=== PATIENT | male | born 1985 | race Caucasian/White ===

== ENCOUNTER 2021-05-01 16:31 | Emergency (ER) | payer SELFPAY ==
[~2021-05-01] VITALS: Ht 175.3 cm; Wt 77.7 kg
--- NOTE | 2021-05-01 20:59 | NUR ---
PT TO ROOM 21 AT THIS TIME. FIRST CONTACT WITH PT. PT REPORTS "I HAVE A HERNIATED BALL SAC" PT AMBULATES. DENIES SOB/CP.
[2021-05-01 21:49] LABS: BARBITURATE SCREEN, URINE Negative (Negative); BENZODIAZEPINE SCREEN, URINE Negative (Negative); CANNABINOID SCREEN, URINE Positive (Negative); COCAINE SCREEN, URINE Negative (Negative); METHADONE SCREEN, URINE Negative (Negative); OPIATE SCREEN, URINE Positive (Negative)
[2021-05-01 21:51] LABS: AMPHETAMINE SCREEN, URINE Positive (Negative)
[2021-05-01 22:01] LABS: MICROSCOPIC INDICATED
--- NOTE | 2021-05-01 22:38 | NUR ---
PT SLEEPING. NADN. WILL CONTINUE TO MONITOR.
[2021-05-01 22:39] VITALS: BP 145/70
[2021-05-01] MEDS ORDERED: AZITHROMYCIN 500 MG TABLET PO ONE (23:00)
[2021-05-01] MEDS ORDERED: CEFTRIAXONE 1,000 MG IM ONE (23:00)
[2021-05-01] MEDS ORDERED: IBUPROFEN 800 MG TABLET PO ONE (23:30)
[2021-05-01] MEDS ORDERED: IBUPROFEN 800 MG TABLET ONE (23:32)
[2021-05-01] MEDS ORDERED: CEFTRIAXONE 250 MG ONE (23:32)
[2021-05-01] MEDS ORDERED: LIDOCAINE-MPF 1%, 5ML ONE (23:32)
[2021-05-01] MEDS ORDERED: AZITHROMYCIN 250 MG TABLET ONE (23:32)
== END 2021-05-01 23:53 | disposition admitted as inpatient to this hospital (09) ==
LOC: ED 21:24
DX: N45.1 Epididymitis (principal); N45.2 Orchitis; R42 Dizziness and giddiness; F17.200 Nicotine dependence, unspecified, uncomplicated
CPT/HCPCS: 76870; 80307; 81001; 87086; 87491; 87591; 93975; 96372; 99284; J0696